=== PATIENT | male | born 1940 | race Caucasian/White ===

== ENCOUNTER → 2017-08-22 | Outpatient (CLI) | payer MEDICARE, OTHER ==
[~2017-08-22] MED LIST: ABAC300; ALBU90OI6 INH; ALLO100 PO; ALLO300 PO; AMLO10 PO; AMOCLA875 PO; ASPI325 PO; ASPI81CH; ATEN50; ATEN50 PO; BECLNI16.8 INH; CLON.2 PO; CLOP75 PO; CRANBERRY250 MG PO; Clotrimazole-Be15 GM; DICL25ER PO; DICL75ER PO; ERGO400; EZET10 PO; FISH1000 PO; FLAX; FLAX SEED PO; FLUO20; FLUO20 PO; FLUTICASONE FUROATE INH; FOLI400 PO; FOLIC ACID 800MCG PO; FURO20; FURO40 PO; GINKGO BILOBA; GINKO PO; GLUCOSAMINE PO; GLYB5; GLYB5 PO; HUMULIN 70100 UNIT/1 SC; HUMULIN R SQ; HYDCHL12.5 PO; Humulin N100 UNIT/1 SC; INSDET100 SQ; INSR10I SC; LANS15EC PO; LISHYD2012 PO; LISI20; LISINOPRIL PO; LORA.5 PO; Lacri-Lube S.O3.5 GM OD; METF500 PO; METFORMIN PO; NIAC500 PO; NIACIN ER750 MG PO; NITR.4SL SL; Norco 5-325 Ta1 EACH PO; OXYACE5T PO; POTA20PAC PO; POTCHL20ER; POTCHL20ER PO; Percocet 5-3251 EACH PO; Prozac40 MG PO; Tylenol325 MG PO; VITAMIN C PO; VITAMIN D PO; Zestril40 MG PO; Zovirax800 MG PO; Zyloprim300 MG PO; [UNRECOGNIZED DRUG - OTHER]; [UNRECOGNIZED DRUG - OTHER] INH
== END | disposition home or self-care (01) ==
LOC: PLD 07:35 → LAB SHORT 07:35 → EDSTATUS 09:00
DX: C44.212 Basal cell carcinoma of skin of right ear and external auricular canal (principal); L57.8 Other skin changes due to chronic exposure to nonionizing radiation
CPT/HCPCS: 88305

== ENCOUNTER → 2017-09-30 | Outpatient (CLI) | payer MEDICARE, OTHER ==
[~2017-09-30] MED LIST changes: +Betamethasone V60 ML; +CLON.1 PO; +FAMO20; +Nitrostat0.4 MG; +Tylophen500 MG
== END | disposition home or self-care (01) ==
LOC: PLD 07:24 → LAB SHORT 07:24
DX: C44.212 Basal cell carcinoma of skin of right ear and external auricular canal (principal)
CPT/HCPCS: 88305

== ENCOUNTER 2018-03-18 06:48 | Day surgery (SDC) | payer MEDICARE, OTHER ==
[~2018-03-18] VITALS: Ht 177.8 cm; Wt 133.4 kg
[~2018-03-18 06:48] MED LIST changes: +ACET500 PO; +BETA.05TO SC; +DOCU100 PO; +FISH OIL 1,0001 EAC1 PO; -FLAX; +FLAX PO; +GINKGO60 MG PO; +HUMULIN 70100 UNIT/2 SC; +HYDR1TAB94 PO; +K-Dur20 MEQ PO; +NIAC250ER PO; +NOVOLIN 70100 UNIT/1 SC; +VITAMIN D22000 UNIT PO; +Vitamin D2000 UNIT PO
[2018-03-18] MEDS ORDERED: Isosorbide Mono30 MG (07:47)
[2018-03-18] MEDS ORDERED: Isosorbide Mono60 MG (07:47)
--- NOTE | 2018-03-18 08:14 | NUR ---
03/18/18 0814 Jackie Moreno PROCEDURE CX BY DR MCDANIEL D/T PT TAKING PLAVIX 03/17/18. PT DISCUSSED RESCHEDULING WITH DR MCDANIEL.
== END 2018-03-18 08:12 | disposition home or self-care (01) ==
LOC: ORSCSDS 06:48
DX: R10.9 Unspecified abdominal pain (principal); Z53.9 Procedure and treatment not carried out, unspecified reason; E11.9 Type 2 diabetes mellitus without complications; Z79.4 Long term (current) use of insulin; I10 Essential (primary) hypertension
CPT/HCPCS: 82947; 93005; 93010; J0330; J1980; J2405; J7120

== ENCOUNTER 2018-04-08 12:35 | Day surgery (SDC) | payer MEDICARE, OTHER ==
[~2018-04-08] VITALS: Ht 175.3 cm; Wt 133.9 kg
[~2018-04-08 12:35] MED LIST changes: +Isosorbide Mono30 MG; +Isosorbide Mono60 MG
== END 2018-04-08 15:45 | disposition home or self-care (01) ==
LOC: ORSCSDS 12:35
DX: R10.9 Unspecified abdominal pain (principal); K22.70 Barrett's esophagus without dysplasia; K44.9 Diaphragmatic hernia without obstruction or gangrene; K31.7 Polyp of stomach and duodenum; K21.9 Gastro-esophageal reflux disease without esophagitis; K31.89 Other diseases of stomach and duodenum; G47.33 Obstructive sleep apnea (adult) (pediatric); I25.10 Atherosclerotic heart disease of native coronary artery without angina pectoris; Z95.1 Presence of aortocoronary bypass graft; E11.9 Type 2 diabetes mellitus without complications; I10 Essential (primary) hypertension; E78.5 Hyperlipidemia, unspecified; Z87.891 Personal history of nicotine dependence; Z79.82 Long term (current) use of aspirin; Z79.4 Long term (current) use of insulin; Z79.899 Other long term (current) drug therapy; Z79.01 Long term (current) use of anticoagulants
CPT/HCPCS: 82947; 88305; 88342; J7120

== ENCOUNTER → 2018-05-06 | Outpatient (CLI) | payer MEDICARE, OTHER | END | disposition home or self-care (01) | LOC: PLD 08:21 → LAB SHORT 08:21 | DX: D48.5 Neoplasm of uncertain behavior of skin (principal) | CPT/HCPCS: 88305 ==

== ENCOUNTER → 2018-05-21 | Outpatient (CLI) | payer MEDICARE, OTHER | END | disposition home or self-care (01) | LOC: LAB SHORT 07:42 → PLD 07:42 | DX: C44.310 Basal cell carcinoma of skin of unspecified parts of face (principal) | CPT/HCPCS: 88305 ==

== ENCOUNTER → 2018-06-23 | Outpatient (CLI) | payer MEDICARE, OTHER ==
[2018-06-24 12:16] LABS: Hematocrit 39.4 % (37.0-53.0); Hemoglobin 12.7 g/dL (13.5-17.5)
[2018-06-24 12:22] LABS: Albumin, Blood 2.9 g/dL (3.4-5.0); Anion Gap 5 mmol/L (6-16); Blood Urea Nitrogen 53 mg/dL (8-24); Bun/Creatinine Ratio 12.7 (12.0-20.0); CO2, Blood 27 mmol/L (21-32); Chloride, Blood 107 mmol/L (98-108); Creatinine, Blood 4.17 mg/dL (0.60-1.20); Glomerular Filtration Rate 15 (60-); Glucose, Blood 125 mg/dL (70-99); Phosphorus, Blood 4.8 mg/dL (2.5-4.9); Potassium, Blood 4.2 mmol/L (3.5-5.5); Sodium, Blood 139 mmol/L (136-145)
== END | disposition home or self-care (01) ==
LOC: LAB SHORT 14:50 → LAB 14:50
PROVIDERS: Internal Medicine
DX: N18.4 Chronic kidney disease, stage 4 (severe) (principal)
CPT/HCPCS: 80069; 85014; 85018

== ENCOUNTER → 2019-01-05 | Outpatient (CLI) | payer MEDICARE, OTHER ==
[2019-01-05 19:13] LABS: Hematocrit 31.2 % (37.0-53.0); Hemoglobin 10.1 g/dL (13.5-17.5)
[2019-01-05 19:45] LABS: Albumin, Blood 2.5 g/dL (3.4-5.0); Anion Gap 8 mmol/L (6-16); Blood Urea Nitrogen 54 mg/dL (8-24); Bun/Creatinine Ratio 11.5 (12.0-20.0); CO2, Blood 19 mmol/L (21-32); Calcium, Blood 8.9 mg/dL (8.5-10.1); Chloride, Blood 111 mmol/L (98-108); Creatinine, Blood 4.69 mg/dL (0.60-1.20); Glomerular Filtration Rate 13 (60-); Glucose, Blood 189 mg/dL (70-99); Phosphorus, Blood 4.5 mg/dL (2.5-4.9); Potassium, Blood 4.9 mmol/L (3.5-5.5); Sodium, Blood 138 mmol/L (136-145)
== END | disposition home or self-care (01) ==
LOC: LAB UCHC 14:12 → LAB SHORT 14:12
PROVIDERS: Internal Medicine
DX: N18.4 Chronic kidney disease, stage 4 (severe) (principal)
CPT/HCPCS: 36415; 80069; 85014; 85018

== ENCOUNTER 2019-01-14 08:57 | Day surgery (SDC) | payer MEDICARE, OTHER ==
[~2019-01-14] VITALS: Ht 175.3 cm; Wt 133.0 kg
[~2019-01-14 08:57] MED LIST changes: +CALC.25 PO; +Isosorbide Mono30 MG PO; -Isosorbide Mono60 MG; +Isosorbide Mono60 MG PO; +Loratadine10 MG PO; +METO50ER PO; +SODBIC650 PO; +TOPROL XL50 MG
--- NOTE | 2019-01-14 12:45 | NUR ---
L NECK PUNCTURE AREA SUTURED BY DR CAMARILLO. -BLEEDING OR OOZING POST SUTURING. STERILE DRSG REAPPLIED.
--- NOTE | 2019-01-14 13:09 | NUR ---
PT VERBALIZED UNDERSTANDING OF WRITTEN AND VERBAL D/C INST. IV REMOVED. PT TAKEN OUT OF THE HRT CENTER VIA W/C.
[2019-03-04] MEDS ORDERED: Aspirin EC81 MG PO (14:58)
[2019-03-04] MEDS ORDERED: NOVOLIN 70100 UNIT/1 SC (15:01)
[2019-03-04] MEDS ORDERED: NITR.4SL SL (15:05)
[2019-03-04] MEDS ORDERED: Betamethasone V15 GM TD (15:07)
[2019-03-04] MEDS ORDERED: ACET500 PO (15:08)
[2019-03-04] MEDS ORDERED: REPATHA SU140 MG/1 M SC (15:12)
== END 2019-01-14 13:15 | disposition home or self-care (01) ==
LOC: MHTC 08:57
DX: I12.0 Hypertensive chronic kidney disease with stage 5 chronic kidney disease or end stage renal disease (principal); E11.22 Type 2 diabetes mellitus with diabetic chronic kidney disease; E66.9 Obesity, unspecified; N18.6 End stage renal disease; E78.5 Hyperlipidemia, unspecified; Z87.891 Personal history of nicotine dependence; Z88.8 Allergy status to other drugs, medicaments and biological substances; Z88.5 Allergy status to narcotic agent; Z79.4 Long term (current) use of insulin; Z79.82 Long term (current) use of aspirin; Z79.899 Other long term (current) drug therapy; Z68.41 Body mass index [BMI] 40.0-44.9, adult
CPT/HCPCS: 36558; 76937; 82947; 99152; C1750; C1769; J1644; J2250; J3010; J7030

== ENCOUNTER 2019-03-05 06:43 | Day surgery (SDC) | payer MEDICARE, OTHER ==
[~2019-03-05] VITALS: Ht 175.3 cm; Wt 136.0 kg
[~2019-03-05 06:43] MED LIST changes: +Aspirin EC81 MG PO; +Betamethasone V15 GM TD; +REPATHA SU140 MG/1 M SC
--- NOTE | 2019-03-05 11:11 | NUR ---
PURSE STRINGS TAKEN OUT X2, CLOTH DOTS PLACED OVER SITES. IV OUT WITH CATHETER INTACT. DISCHARGE GONE OVER WITH PT AND KERA, BOTH VERBALIZE UNDERSTANDING OF INSTRUCTIONS. PT TO PRIVATE VEHICLE PER W/C WITH 1 STAFF.
== END 2019-03-05 11:00 | disposition home or self-care (01) ==
LOC: MHTC 06:43
DX: T82.858A Stenosis of other vascular prosthetic devices, implants and grafts, initial encounter (principal); I12.0 Hypertensive chronic kidney disease with stage 5 chronic kidney disease or end stage renal disease; E11.22 Type 2 diabetes mellitus with diabetic chronic kidney disease; N18.6 End stage renal disease; I25.10 Atherosclerotic heart disease of native coronary artery without angina pectoris; E78.5 Hyperlipidemia, unspecified; M19.90 Unspecified osteoarthritis, unspecified site; E11.69 Type 2 diabetes mellitus with other specified complication; M86.9 Osteomyelitis, unspecified; Z79.4 Long term (current) use of insulin; Z90.49 Acquired absence of other specified parts of digestive tract; Z95.1 Presence of aortocoronary bypass graft; Z95.5 Presence of coronary angioplasty implant and graft; Z99.2 Dependence on renal dialysis; Z79.82 Long term (current) use of aspirin; Z79.02 Long term (current) use of antithrombotics/antiplatelets; Z79.899 Other long term (current) drug therapy; Z88.5 Allergy status to narcotic agent; Z88.8 Allergy status to other drugs, medicaments and biological substances; Z87.891 Personal history of nicotine dependence; Y83.2 Surgical operation with anastomosis, bypass or graft as the cause of abnormal reaction of the patient, or of later complication, without mention of misadventure at the time of the procedure
CPT/HCPCS: 36902; 76937; 82947; 99152; 99153; C1725; C1769; C1887; C1894; J1644; J2250; J3010; J7030; J7042; Q9967

== ENCOUNTER 2019-06-01 11:06 | Inpatient (IN) | payer MEDICARE, OTHER ==
[~2019-06-01] VITALS: Ht 177.8 cm; Wt 121.0 kg
[~2019-06-01 11:06] MED LIST changes: +LEVO750 PO; +NOVOLIN 70100 UNIT/2 SC; +POTCHL10ER PO; +THERA-D2000 UNIT PO
[2019-06-01 11:41] LABS: BASOPHILS ABSOLUTE AUTO 0.02 K/mm3 (0.00-0.23); BASOPHILS PERCENT AUTO 0 % (0-2); EOSINOPHILS ABSOLUTE AUTO 0.01 K/mm3 (0.00-0.68); EOSINOPHILS PERCENT AUTO 0 % (0-6); Hematocrit 42.3 % (37.0-53.0); IMMATURE GRAN ABSOLUTE AUTO 0.09 K/mm3 (0.00-0.10); IMMATURE GRAN PERCENT AUTO 1 % (0-1); LYMPHOCYTES ABSOLUTE AUTO 1.66 K/mm3 (0.84-5.20); LYMPHOCYTES PERCENT AUTO 12 % (21-46); MONOCYTES PERCENT AUTO 10 % (4-13); Mean Corpuscular HGB 33.6 pg (26.0-34.0); Mean Corpuscular HGB Conc 30.7 g/dL (31.5-36.5); Mean Corpuscular Volume 109 fL (80-100); Mean Platelet Volume 11.2 fL (9.1-12.4); NEUTROPHILS ABSOLUTE AUTO 10.36 K/mm3 (1.96-9.15); NEUTROPHILS PERCENT AUTO 77 % (41-73); NRBC ABSOLUTE 0.05 K/mm3 (0.00-0.02); NRBC Auto 0.4 /100 WBC (0.0-0.2); Platelet Count 169 K/mm3 (150-400); RDW Coefficient Variation 18.9 % (11.7-14.2); RDW Standard Deviation 72.5 fL (35.1-46.3); Red Blood Cell Count 3.87 M/mm3 (4.30-5.90); White Blood Cell Count 13.54 K/mm3 (4.00-11.30)
[2019-06-01 11:53] LABS: Albumin, Blood 3.2 g/dL (3.4-5.0); Albumin/Globulin Ratio 0.8 (0.8-1.8); Bilirubin, Total 3.3 mg/dL (0.1-1.0); Bun/Creatinine Ratio 10.3 (12.0-20.0); Calcium, Blood 10.1 mg/dL (8.5-10.1); Creatinine, Blood 4.08 mg/dL (0.60-1.20); Potassium, Blood 4.1 mmol/L (3.5-5.5); Total Protein, Blood 7.2 g/dL (6.4-8.2)
[2019-06-01 12:42] LABS: CPK Creatine Kinase 50 U/L (39-308); Ethanol (Alcohol), Blood, Med <3 mg/dL
[2019-06-01] MEDS ORDERED: NOVOLIN 70100 UNIT/1 SC (14:01)
[2019-06-01] MEDS ORDERED: Isosorbide Mono60 MG PO (14:02)
[2019-06-01] MEDS ORDERED: METO100ER PO (14:02)
[2019-06-01] MEDS ORDERED: SEVEC800 PO (14:03)
[2019-06-01] MEDS ORDERED: ALLOPURINOL100 M1 PO (14:03)
[2019-06-01 14:14] LABS: Base Excess Venous 5.8 mmol/L; Bicarbonate Venous 28.7 mmol/L (24.0-30.0); PCO2 Venous 44.4 mmHg (38-42); PO2 Venous 59.6 mmHg (38-42); pH Blood Venous 7.44 (7.34-7.37)
--- NOTE | 2019-06-01 19:36 | NUR ---
SUMMARY PT CONTINUES TO BE CONFUSED/LETHARGIC. HE RESPONDS TO VERBAL STIMULI & ATTEMPTS TO COMMUNICATE BUT SPEECH IS MOSTLY GARBLED & NONSENSICLE. IV ABX INFUSED PER EMAR, NS TKO @ 25 ML/HR. PT IS ON 2 L VIA NC, CONT BIOX PLACED. BED ALARM ON FOR SAFETY. CALL LIGHT IN REACH. REPORT GIVEN TO EFREN CANTOR.
--- NOTE | 2019-06-01 22:24 | NUR ---
Assumed Care Pt lethargic, arrousable with voice, unable to answer orientation questions. Pt is alert throughout care, not speaking or answering verbally to staff. Pt able to follow commands such as lifting arms or turning from side to side. Pt demostrating weak strength throughout. BP showing HTN upon initial assessment, pt too lethargic to safely swallow. Provider called and orders recieved for IV medication. BP post administration improved. All other VSS. pt is rule out covid-19, 96% on 2L NC. Pt with 2-3+ pitting edema to LLE up to L buttocks. non weeping. Pts called this RN for update. update provided. Pt's states "he hasn't eated for 3 days, he falls a lot at home". Will continue to [facility].
--- NOTE | 2019-06-02 02:32 | NUR ---
: SHERLEY LOCKHART WOULD LIKE TO BE UPDATED NEEDED: [phone]
[2019-06-02 04:08] LABS: BASOPHILS ABSOLUTE AUTO 0.03 K/mm3 (0.00-0.23); BASOPHILS PERCENT AUTO 0 % (0-2); EOSINOPHILS ABSOLUTE AUTO 0.13 K/mm3 (0.00-0.68); EOSINOPHILS PERCENT AUTO 1 % (0-6); Hemoglobin 11.3 g/dL (13.5-17.5); IMMATURE GRAN ABSOLUTE AUTO 0.03 K/mm3 (0.00-0.10); IMMATURE GRAN PERCENT AUTO 0 % (0-1); LYMPHOCYTES ABSOLUTE AUTO 0.94 K/mm3 (0.84-5.20); LYMPHOCYTES PERCENT AUTO 10 % (21-46); MONOCYTES ABSOLUTE AUTO 1.03 K/mm3 (0.16-1.47); MONOCYTES PERCENT AUTO 11 % (4-13); Mean Corpuscular HGB Conc 31.4 g/dL (31.5-36.5); Mean Corpuscular Volume 108 fL (80-100); Mean Platelet Volume 10.6 fL (9.1-12.4); NEUTROPHILS PERCENT AUTO 77 % (41-73); NRBC ABSOLUTE 0.02 K/mm3 (0.00-0.02); NRBC Auto 0.2 /100 WBC (0.0-0.2); Platelet Count 101 K/mm3 (150-400); RDW Coefficient Variation 18.2 % (11.7-14.2); RDW Standard Deviation 71.5 fL (35.1-46.3); Red Blood Cell Count 3.32 M/mm3 (4.30-5.90); White Blood Cell Count 9.16 K/mm3 (4.00-11.30)
[2019-06-02 04:25] LABS: Bun/Creatinine Ratio 11.9 (12.0-20.0); Calcium, Blood 9.5 mg/dL (8.5-10.1); Creatinine, Blood 4.45 mg/dL (0.60-1.20); Potassium, Blood 3.5 mmol/L (3.5-5.5)
--- NOTE | 2019-06-02 05:47 | NUR ---
Shift Summary pt with no acute changes this shift, pt remains lethargic, arrousable to verbal stim, garbled speech with grunting and moaning, following commands, appears comfortable. Repositioned q2, compliant with turns. Oral care provided q4 and PRN. At times, pt able to express needs clearly stating "My mouth is dry" then does not communicate more than that. Pt is NPO. Too lethargic to give PO medications safely this shift, Protonix IV per MD orders. See shift assessment for detailed systems assessment. Pt is droplet isolation for R/O COVID-19. Care bundled accordingly, breathing even and unlabored on 2L NC, oxygen saturation 95% or above, no changes to lung matute upon auscultation this shift. Will continue to monitor and update with changes as needed until day RN assumes care.
[2019-06-02 10:26] LABS: Albumin, Blood 2.7 g/dL (3.4-5.0); Albumin/Globulin Ratio 0.8 (0.8-1.8); Bilirubin, Direct 1.2 mg/dL (0.0-0.3); Bilirubin, Indirect 0.5 mg/dL (0.1-0.7); Bilirubin, Total 1.7 mg/dL (0.1-1.0); Globulin, Blood 3.4 g/dL (2.2-4.0); Total Protein, Blood 6.1 g/dL (6.4-8.2)
--- NOTE | 2019-06-02 17:35 | NUR ---
PCU DAYSHIFT SUMMARY PATIENT CONFUSED AND LETHARGIC T/O SHIFT. Q2 TURNS AND INCONTINENT OF URINE AND STOOL. RESP E/U AT REST ON 2 LPM NC. PATIENT NSR IN THE 70'S. PATIENT BLOOD SUGARS LOW T/O SHIFT - NOTIFIED MD MILLER X3 - NEW ORDERS GIVEN SEE ORDERS AND EMAR. PATIENT STATES HE FEELS POORLY. PATIENT JAUNDICE. DIALYSIS PATIENT WITH L CHEST PERMA CATH AND RIGHT FOREARM FISTUALA - DIALYSIS TODAY WITH 2.5 L REMOVED. CALL LIGHT W/I REACH. BED ALARM ON. PATIENT KEPT NPO DUE TO ASPITATION RISK. WILL CONTINUE TO MONITOR AND GIVE REPORT TO NOC SHIFT RN.
--- NOTE | 2019-06-02 22:39 | NUR ---
ASSUMED CARE/TRANSFER TO ICU 9 Pt alert and oriented to person, place, date, and following directions. VSS. Q1 hour blood sugar checks per orders. Orders at time of this RN arrival implemented, blood sugar improved to >100. Pt is rule out COVID-19; CPAP at bedside set up by RT; pt will be in airborne precautions once CPAP is utilized. Pt with only one access site - PIV to LAC, patent and flushing, infusing at this time. Pt denies pain. No redness or swelling noted. See shift assessment for detailed systems assessment. NSR on tele, no events. Fistula to RFA; no blood pressure or lab draws on R arm, sign in place on door. Due to acuity of care, provider called and orders obtained for ICU status. Per provider, PICC line to be placed, straigh cath to be placed for UA. Provider made aware that no composite boat builder who can place PICC line at this time - Nurse Notify placed per provider order to call back if PIV is lost at anytime this shift. Report given to POLITICAL GEOGRAPHER who assumes care. Pt transfered to ICU with all pt belongings with him, this RN and two PHOTOGRAPHY MANAGER at bedside during transfer; mask placed on pt during transfer.
--- NOTE | 2019-06-02 22:55 | NUR ---
Pt's , Maryellen, called and updated on pt and on the transfer to ICU.
--- NOTE | 2019-06-03 00:18 | NUR ---
ASSUMED PT CARE FROM DEVAUGHN BRO AT 2200 PT ARRIVED ON UNIT WITH MASK IN PLACE D/T COVID RULE OUT. PT IS ON 2L VIA NC WITH BIOX MID 90'S. PT IS ALERT AND ORIENTED AND ABLE TO MAKE NEEDS KNOWN; HOWEVER, NOTED TO HAVE A SLURRED SPEECH. ASKED PT IF THIS IS BASELINE FOR HIM IN WHICH HE STATED, "NO" THAT IS MOUTH WAS JUST DRY. MOUTH SWABS GIVEN WITH MOISTURIZER AND SPEECH CLEARED UP. LUNG SOUNDS ARE CLEAR/DIM T/O ALL LOBES. BLOOD SUGAR 116; DEXTROSE 10% INFUSING VIA 20G TO LEFT AC AT 75MLS/HR. NSR NOTED WITH HR 60'S; BP'S STABLE, SEE FLOWSHEET. MEDIPORT NOTED TO LEFT UPPER CHEST; BOTH LUMENS ARE WRAPPED WITH COBAN AND SECURE. PT NOTED TO HAVE DEEP PITTING EDEMA TO ABDOMEN, LOWER BACK, AND BILATERAL UPPER THIGHS. BLE'S ARE DARK AND DISCOLORED; NO OPEN AREAS NOTED. PT HAS AN ATTENDS IN PLACE; ORDERS TO STRAIGHT CATH; HOWEVER, PT VOIDED PRIOR TO TRANSFERRING TO UNIT. WILL BLADDER SCAN LATER AND STRAIGHT CATH TO OBTAIN UA. CALL LIGHT WITHIN REACH. PT ABLE TO MAKE NEEDS KNOWN.
--- NOTE | 2019-06-03 02:27 | NUR ---
UPDATE WENT IN TO RECHECK BLOOD SUGAR PER ORDERS. PT VERY UPSET AND QUESTIONING WHY WE ARE CHECKING SO FREQUENTLY (EVERY HOUR). ADVISED PT HE IS IN THE ICU D/T UNSTABLE BLOOD SUGARS, HE IS ON FLUIDS CONTINUOUSLY TO KEEP HIS BLOOD SUGAR STABLE. PT STILL UPSET. ALSO UPSET ABOUT BLOOD PRESSURE BEING TAKEN SO FREQUENTLY; Q15 MINUTES. ADVISED I COULD BACK OFF THE PRESSURES SINCE THEY HAVE BEEN STABLE TO EVERY HOUR. PT DEMANDED THAT THEY BE TAKEN EVERY TWO HOURS. HAD DISCUSSION WITH PT THAT HE SEEMS VERY RELUCTANT TO CARES AND THAT WE ARE JUST DOING OUR JOBS TO KEEP HIM SAFE AND ALIVE PER HIS FULL CODE WISHES. PT DENIES WANTING TO BE A FULL CODE. STATED HE DOES NOT WANT TO BE RESUSCITATED AND WOULD LIKE TO GO HOME. INFORMED PT THAT IS HIS RIGHT AND IF THAT IS WHAT HE WANTS THEN WE CAN HAVE A PHYSICIAN SPEAK WITH HIM IN THE MORNING REGARDING THE RISK AND BENEFIT OF GOING HOME. HE STATED, "THE DOCTORS DON'T CARE, THEY JUST PUSH PAPERWORK." REITERATED TO PT THAT WE WANT TO DO WHATEVER HIS WISHES ARE AND IF THAT IS GOING HOME ON COMFORT CARE THEN THAT IS WHAT WE WILL ADVOCATE FOR. ATTEMPTED REDIRECTION WITH OFFERING ASSISTANCE WITH REPOSITIONING; PT REFUSED AND STATED HE COULD REPOSITION HIMSELF. PT HAS REMAINED IN THE SUPING POSITION SINCE ADMIT TO UNIT AROUND 2200. WILL CONTINUE TO ENCOURAGE REPOSITIONING.
--- NOTE | 2019-06-03 04:18 | NUR ---
REFUSAL OF CARE PT REFUSING ALL CARE. REFUSED LABS, REFUSED STRAIGHT CATH FOR UA. REMOVED OXYGEN; BIOX 94% ON RA. WANTS TO TALK TO DOC ABOUT GOING HOME NOW. INFORMED PT I WOULD CONTACT THE DOCTOR ABOUT DISCUSSING GOING HOME ON COMFORT MEASURES IF THAT IS WHAT HE WISHES. PT THEN STATED HE WASN'T GOING TO MAKE ANY DECISIONS WITHOUT CONSULTING HIS FIRST. ATTEMPTED TO CALL ; NO ANSWER. LEFT MESSAGE AND RETURN NUMBER. PT NOTIFIED. DEXTROSE 10% REMAINS INFUSING AT 75MLS/HR; HOWEVER, PT REFUSES TO ALLOW ME TO CHECK HIS BLOOD SUGAR.
--- NOTE | 2019-06-03 05:59 | NUR ---
END OF SHIFT SUMMARY STILL WAITING ON RETURN CALL FROM REGARDING CHANGING PT'S STATUS. PT CONTINUES TO REFUSE CARE; SEE EARLIER NOTES. D10 INFUSING AT 75ML/HR; LAST BLOOD SUGAR CHECKED AT 0600 WAS 120'S. WILL CONTINUE TO MONITOR UNTIL REPORT IS HANDED OFF TO ONCOMING RN.
--- NOTE | 2019-06-03 07:41 | NUR ---
Received report from Dustin CANTOR. Went in to see patient and introduced self and asked patient what his plans were for today. I explained that labs needed to be drawn for dialysis to prepare and he stated "NO". I asked if could do blood sugars as he is on fluids that increase his blood sugars as when he arrived he was very low and again he stated "NO". I informed him that he would most likely get sicker and have a possibilty of dying and he stated That would be fine. he asked if i contacted and told him Dustin CANTOR from nights left messages at house and no return call. He stated what about my 4 other contact and i took their names and he did not know numbers. Son Aditi, Kiko daughter, paz grandson, and maxime. Number on face sheet for son was disconnected. Looked up numers for other family numbers and all phones had message centers that were full and I left messages on both wifes numbers again. I informed this to the patient and he stated " I do not want any thing done" I will continue to try to contact family. He is on RA and sats 99%, HR 68, 147/77. He has 20ga IV in LAC/FA infusing d10 at 75ml/hr. Called Dr. Alfonso and informed her of patients decisions. I also called Alec from Dialysis and advised him patient refusing. While writing this note called back and is talking with him on phone.
[2019-06-03 09:02] LABS: BASOPHILS ABSOLUTE AUTO 0.03 K/mm3 (0.00-0.23); BASOPHILS PERCENT AUTO 0 % (0-2); Bun/Creatinine Ratio 10.3 (12.0-20.0); Calcium, Blood 9.1 mg/dL (8.5-10.1); Creatinine, Blood 3.68 mg/dL (0.60-1.20); EOSINOPHILS ABSOLUTE AUTO 0.37 K/mm3 (0.00-0.68); EOSINOPHILS PERCENT AUTO 5 % (0-6); Hematocrit 35.7 % (37.0-53.0); Hemoglobin 11.5 g/dL (13.5-17.5); IMMATURE GRAN ABSOLUTE AUTO 0.05 K/mm3 (0.00-0.10); IMMATURE GRAN PERCENT AUTO 1 % (0-1); LYMPHOCYTES ABSOLUTE AUTO 0.87 K/mm3 (0.84-5.20); LYMPHOCYTES PERCENT AUTO 11 % (21-46); MONOCYTES ABSOLUTE AUTO 0.82 K/mm3 (0.16-1.47); MONOCYTES PERCENT AUTO 11 % (4-13); Mean Corpuscular HGB 34.8 pg (26.0-34.0); Mean Corpuscular HGB Conc 32.2 g/dL (31.5-36.5); Mean Corpuscular Volume 108 fL (80-100); Mean Platelet Volume 10.9 fL (9.1-12.4); NEUTROPHILS ABSOLUTE AUTO 5.56 K/mm3 (1.96-9.15); NEUTROPHILS PERCENT AUTO 72 % (41-73); Platelet Count 108 K/mm3 (150-400); Potassium, Blood 3.6 mmol/L (3.5-5.5); RDW Coefficient Variation 17.8 % (11.7-14.2); RDW Standard Deviation 69.6 fL (35.1-46.3)
--- NOTE | 2019-06-03 10:23 | NUR ---
Patient allowed us to do a CBG around 09 and was 166. Aids gave bath and had him placed up in recliner and given broth per his request. I asked several times if he want his am meds and refused several times. He is currently Med no tele and r/o covid. removed bandaid from LFA and cleaned skin tear from bathroom at home and reapplied dressing t site.
--- NOTE | 2019-06-03 11:57 | NUR ---
Sat with patient and talked about life and buisness and he decided to take his am meds. He transfered from chair to bed with SBA and was bale to adjust himself. It sound like he will be willing to have dialysis tomorrow. he talks like he is very frustrated about his independence and feels that he has lost alot of skill with his current illness. Dr Simpson by to see patient.
--- NOTE | 2019-06-03 15:41 | NUR ---
Patient has been resting since medicated, repositioned patient several times. Dialysis started about 20 minutes ago and patient has been slightly hypotensive. Patient has been more cooperative with his care.
--- NOTE | 2019-06-03 18:22 | NUR ---
Dialysis done and patient resting. They were able to pull 1800ml off patient. VSS and See EMR. He remains on RA and sats upper 90%'s. D10 continues to run at 50ml/hr since 1400. He has tolerated liquids and PO meds. Patient denies any current needs. he has pushpa more cooperative with care and states just wants to get a good night sleep.
--- NOTE | 2019-06-03 20:00 | NUR ---
ASSUMED CARE OF PT AT 1915. REPORT RECEIVED AT BEDSIDE. PT PRESENTS IN NO APPARENT DISTRESS. DENIES COMPLAINTS. CONTINUES ON D10W AT 50 ML/HOUR. BLOOD GLUCOSE LEVELS MAINTAINING WNL. WILL REVIEW CHART AND PLAN OF CARE FOR THIS PT.
--- NOTE | 2019-06-04 | NUR ---
PT CONTINUES WITH BLOOD GLUCOSE Q 4 HOUR CHECKS. VALUES REMAIN WNL. D10W CONTINUES AT 50 ML/HOUR. PT DENIES COMPLAINTS. AFEBRILE. WILL CONTINUE TO MONITOR.
[2019-06-04 00:10] LABS: HBSAG SCREEN Negative (Negative); HEP A AB, IGM Negative (Negative); HEP B CORE AB, IGM Negative (Negative); HEP C VIRUS AB <0.1 (0.0-0.9)
[2019-06-04 03:59] LABS: BASOPHILS ABSOLUTE AUTO 0.03 K/mm3 (0.00-0.23); BASOPHILS PERCENT AUTO 0 % (0-2); EOSINOPHILS ABSOLUTE AUTO 0.45 K/mm3 (0.00-0.68); EOSINOPHILS PERCENT AUTO 7 % (0-6); Hematocrit 36.4 % (37.0-53.0); Hemoglobin 11.6 g/dL (13.5-17.5); IMMATURE GRAN ABSOLUTE AUTO 0.05 K/mm3 (0.00-0.10); IMMATURE GRAN PERCENT AUTO 1 % (0-1); LYMPHOCYTES ABSOLUTE AUTO 0.87 K/mm3 (0.84-5.20); LYMPHOCYTES PERCENT AUTO 13 % (21-46); MONOCYTES ABSOLUTE AUTO 0.96 K/mm3 (0.16-1.47); MONOCYTES PERCENT AUTO 14 % (4-13); Mean Corpuscular HGB 34.6 pg (26.0-34.0); Mean Corpuscular HGB Conc 31.9 g/dL (31.5-36.5); Mean Corpuscular Volume 109 fL (80-100); Mean Platelet Volume 10.7 fL (9.1-12.4); NEUTROPHILS ABSOLUTE AUTO 4.61 K/mm3 (1.96-9.15); NEUTROPHILS PERCENT AUTO 66 % (41-73); Platelet Count 98 K/mm3 (150-400); RDW Coefficient Variation 17.6 % (11.7-14.2); Red Blood Cell Count 3.35 M/mm3 (4.30-5.90); White Blood Cell Count 6.97 K/mm3 (4.00-11.30)
[2019-06-04 04:18] LABS: Bun/Creatinine Ratio 8.6 (12.0-20.0); Calcium, Blood 8.6 mg/dL (8.5-10.1); Creatinine, Blood 3.15 mg/dL (0.60-1.20); Magnesium, Blood 1.9 mg/dL (1.6-2.4); Potassium, Blood 3.5 mmol/L (3.5-5.5)
--- NOTE | 2019-06-04 06:30 | NUR ---
PT HAS BEEN ABLE TO REST SOME THIS NIGHT. HAS DENIED COMPLAINTS. NO DYSPNEA. HAS BEEN INCONTINENT TO LARGE VOID. PT ABLE TO ASSIST IN TURNS AND BED CHANGE. WILL CONTINUE TO MONITOR PT, AND WILL REPORT OFF TO ONCOMING RN.
--- NOTE | 2019-06-04 08:00 | NUR ---
ASSUMED CARE RECEIVED REPORT FROM DEVAUGHN SANCHES. PT IS LYING IN BED ALERT AND ORIENTED TO SELF, SITUATION, SURROUNDINGS AND DATE. HE IS ON 2L NC. SCD'S ARE ON BILATERAL CALVES. FISTULA IN RIGHT FOREARM - PALPABLE THRILL AND BRUIT WAS AUSCULTATED. BED LOW AND LOCKED. CALL LIGHT WITHIN REACH.
[2019-06-04] MEDS ORDERED: LEVFLO500 PO (13:27)
--- NOTE | 2019-06-04 13:30 | NUR ---
Called to meet with patient by chaplian. Patient expressing great stress at having to do dialysis and his fatigue. Review of pt symptoms he states the only day he does not feel sick is saturday when he has had two days off from dialysis. He sstates last treatment at clinic was frightening due to the illness he felt during the treatent. He is interested in peritoneal dialysis but has not seen the home nurse to have his memebrane evaluated for UF potential. Pt has very sore mouth and it is worsening . Review of oral care and strategies for dry sore mouth. pt to discharge home.
--- NOTE | 2019-06-04 18:41 | NUR ---
Initial spiritual care note: Mr. Nino spoke at length about how dialysis has become a hardship for him. He states it is a 60 mile round trip, "and then the day is wasted because I feel so lousy." He is hopeful to be able to have dialysis at home. If he cannot, he is unsure he wants to continue dialysis at all. He is used to a rather active life-style. This gave his life purpose. He was very open with me and appeared to benefit from being heard and affirmed. He is non-restoration. He is being discharged home this afternoon. I asked palliative care RN to confirm his wishes.
== END 2019-06-04 14:18 | disposition home or self-care (01) | DRG 871 ==
LOC: ER 11:06 → PCU 13:39 → ICUW 06-02 21:39
PROVIDERS: Emergency Medicine; Internal Medicine; ADMIT Internal Medicine
PROC: 8E0ZXY6 Isolation (ICD-10-PCS; principal; 2019-06-01)
DX: A41.9 Sepsis, unspecified organism (principal); J18.9 Pneumonia, unspecified organism; N18.6 End stage renal disease; Z68.43 Body mass index [BMI] 50.0-59.9, adult; I12.0 Hypertensive chronic kidney disease with stage 5 chronic kidney disease or end stage renal disease; G93.40 Encephalopathy, unspecified; Z95.1 Presence of aortocoronary bypass graft; R65.20 Severe sepsis without septic shock; Z79.82 Long term (current) use of aspirin; Z79.4 Long term (current) use of insulin; Z99.2 Dependence on renal dialysis; E66.9 Obesity, unspecified; I25.10 Atherosclerotic heart disease of native coronary artery without angina pectoris; E78.5 Hyperlipidemia, unspecified; E11.649 Type 2 diabetes mellitus with hypoglycemia without coma; Z91.81 History of falling
CPT/HCPCS: 36415; 51798; 70450; 71045; 71250; 74150; 76705; 80048; 80053; 80074; 80076; 82140; 82550; 82803; 82947; 83605; 83735; 83880; 84145; 84443; 85025; 86317; 87040; 93005; 93010; 94660; 99285-25; A9270; A9270-GY; C9113; G0480; J0696; J1815; J1956; J3370; J7040; J7799; U0002

== ENCOUNTER → 2019-06-09 | Outpatient (CLI) | payer MEDICARE, OTHER ==
[~2019-06-09] MED LIST changes: +ALLOPURINOL100 M1 PO; +LEVFLO500 PO; +METO100ER PO; +SEVEC800 PO
[2019-06-09 16:17] LABS: Hematocrit 35.6 % (37.0-53.0); Hemoglobin 11.2 g/dL (13.5-17.5)
== END | disposition home or self-care (01) ==
LOC: LAB SHORT 16:09 → LAB 16:09
PROVIDERS: Internal Medicine
DX: D64.9 Anemia, unspecified (principal)
CPT/HCPCS: 85014; 85018

== ENCOUNTER → 2019-06-11 | Outpatient (CLI) | payer MEDICARE, OTHER ==
[2019-06-11 17:07] LABS: Blood, Urine 1+ (Neg); Glucose Qualitative, Urine Neg (Neg); Ketones, Urine Neg (Neg); Leukocyte Esterase, Urine 1+ (Neg); Nitrite, Urine Neg (Neg); Protein, Urine 4+ (Neg); Specific Gravity, Urine 1.015 (1.003-1.022); Urobilinogen, Urine 1+ (Normal)
[2019-06-11 17:20] LABS: Bilirubin, Urine 1+ (Neg)
[2019-06-11 17:21] LABS: Appearance, Urine Clear (Clear); Color, Urine Yellow (P-Yellow)
[2019-06-11 17:22] LABS: Bacteria Mod /hpf; Red Blood Cells, Urine 0-2 /hpf (0-2); Squamous Epithelial Cells Rare /hpf (Few)
[2019-06-11 17:23] LABS: Yeast/Fungi Urine Many /hpf
== END | disposition home or self-care (01) ==
LOC: LAB 16:02 → LAB SHORT 16:02
PROVIDERS: Internal Medicine
DX: R31.9 Hematuria, unspecified (principal)
CPT/HCPCS: 81001; 87086

== ENCOUNTER 2019-06-18 12:39 | Inpatient (IN) | payer MEDICARE, OTHER ==
[~2019-06-18] VITALS: Ht 177.8 cm; Wt 119.5 kg
[~2019-06-18 12:39] MED LIST changes: -THERA-D2000 UNIT PO
[2019-06-18 13:30] LABS: BASOPHILS ABSOLUTE AUTO 0.05 K/mm3 (0.00-0.23); BASOPHILS PERCENT AUTO 1 % (0-2); EOSINOPHILS PERCENT AUTO 2 % (0-6); Hematocrit 40.1 % (37.0-53.0); Hemoglobin 12.6 g/dL (13.5-17.5); IMMATURE GRAN ABSOLUTE AUTO 0.04 K/mm3 (0.00-0.10); IMMATURE GRAN PERCENT AUTO 0 % (0-1); LYMPHOCYTES ABSOLUTE AUTO 1.32 K/mm3 (0.84-5.20); LYMPHOCYTES PERCENT AUTO 15 % (21-46); MONOCYTES ABSOLUTE AUTO 1.17 K/mm3 (0.16-1.47); MONOCYTES PERCENT AUTO 13 % (4-13); Mean Corpuscular HGB 33.9 pg (26.0-34.0); Mean Corpuscular HGB Conc 31.4 g/dL (31.5-36.5); Mean Platelet Volume 10.4 fL (9.1-12.4); NEUTROPHILS ABSOLUTE AUTO 6.14 K/mm3 (1.96-9.15); NEUTROPHILS PERCENT AUTO 69 % (41-73); Platelet Count 91 K/mm3 (150-400); RDW Coefficient Variation 17.5 % (11.7-14.2); RDW Standard Deviation 65.8 fL (35.1-46.3); Red Blood Cell Count 3.72 M/mm3 (4.30-5.90); White Blood Cell Count 8.92 K/mm3 (4.00-11.30)
[2019-06-18 13:44] LABS: Mean Corpuscular Volume 108 fL (80-100)
[2019-06-18 13:49] LABS: Albumin/Globulin Ratio 0.8 (0.8-1.8); Bilirubin, Total 2.1 mg/dL (0.1-1.0); Bun/Creatinine Ratio 9.2 (12.0-20.0); Calcium, Blood 10.3 mg/dL (8.5-10.1); Creatinine, Blood 4.35 mg/dL (0.60-1.20); Globulin, Blood 3.9 g/dL (2.2-4.0); Potassium, Blood 3.5 mmol/L (3.5-5.5); Total Protein, Blood 6.9 g/dL (6.4-8.2)
--- NOTE | 2019-06-18 18:24 | NUR ---
BROUGHT TO PCU FROM ED VIA STRETCHER. APPEARS SLEEPY ON ARRIVAL. ANSWERS QUESTIONS WITH SLOW RESPONSE AFTER MULTIPLE PROMPTS. 4L 02 VIA NC. IV TO RIGHT SHOULDER. MEPLIX PLACED ON COCCYX FOR REDDENED AREA. LARGE HEMATOMA NOTED ABOVE COCCYX EXTENDING ACROSS RIGHT UPPER BUTTOX. PHOTOS TAKEN FOR CHART. VSS, WILL CONTINUE TO MONITOR UNTIL SHIFT CHANGE. IV NS STARTED AT 100ML/HR PER ORDERS.
[2019-06-18 22:56] LABS: Source, Urine Voided
[2019-06-18 22:59] LABS: Appearance, Urine Clear (Clear); Bilirubin, Urine 1+ (Neg); Blood, Urine 3+ (Neg); Color, Urine Amber (P-Yellow); Glucose Qualitative, Urine Neg (Neg); Ketones, Urine 1+ (Neg); Leukocyte Esterase, Urine 1+ (Neg); Nitrite, Urine Neg (Neg); Protein, Urine 4+ (Neg); Urobilinogen, Urine 1+ (Normal)
[2019-06-18 23:05] LABS: Bacteria Mod /hpf; Granular Casts 0-2 /lpf (0); Red Blood Cells, Urine 0-2 /hpf (0-2); Squamous Epithelial Cells Few /hpf (Few)
[2019-06-18 23:10] LABS: U Amphetamine Screen Not Detected; U Barbituate Screen Not Detected; U Benzodiazapine Screen Not Detected; U Buprenorphine Screen Not Detected; U Cannabinoids Screen Not Detected; U Cocaine Screen Not Detected; U Methadone Screen Not Detected; U Methamphetamine Screen Not Detected; U Opiates Screen Not Detected; U Oxycodone Screen Not Detected; U Phencyclidine Screen Not Detected; U Propoxyphene Screen Not Detected
[2019-06-19 04:18] LABS: BASOPHILS ABSOLUTE AUTO 0.03 K/mm3 (0.00-0.23); BASOPHILS PERCENT AUTO 0 % (0-2); EOSINOPHILS ABSOLUTE AUTO 0.18 K/mm3 (0.00-0.68); EOSINOPHILS PERCENT AUTO 3 % (0-6); Hematocrit 38.2 % (37.0-53.0); Hemoglobin 12.2 g/dL (13.5-17.5); IMMATURE GRAN ABSOLUTE AUTO 0.03 K/mm3 (0.00-0.10); IMMATURE GRAN PERCENT AUTO 0 % (0-1); LYMPHOCYTES ABSOLUTE AUTO 1.13 K/mm3 (0.84-5.20); LYMPHOCYTES PERCENT AUTO 16 % (21-46); MONOCYTES ABSOLUTE AUTO 0.75 K/mm3 (0.16-1.47); MONOCYTES PERCENT AUTO 11 % (4-13); Mean Corpuscular HGB 34.7 pg (26.0-34.0); Mean Corpuscular HGB Conc 31.9 g/dL (31.5-36.5); Mean Corpuscular Volume 109 fL (80-100); Mean Platelet Volume 10.3 fL (9.1-12.4); NEUTROPHILS ABSOLUTE AUTO 4.93 K/mm3 (1.96-9.15); NEUTROPHILS PERCENT AUTO 70 % (41-73); Platelet Count 81 K/mm3 (150-400); RDW Coefficient Variation 17.6 % (11.7-14.2); RDW Standard Deviation 67.7 fL (35.1-46.3); Red Blood Cell Count 3.52 M/mm3 (4.30-5.90); White Blood Cell Count 7.05 K/mm3 (4.00-11.30)
[2019-06-19 04:30] LABS: International Normalized Ratio 1.16; Prothrombin Time Results 12.3 Sec (9.7-11.5)
[2019-06-19 04:40] LABS: Albumin, Blood 2.8 g/dL (3.4-5.0); Albumin/Globulin Ratio 0.7 (0.8-1.8); Bun/Creatinine Ratio 9.6 (12.0-20.0); Calcium, Blood 9.9 mg/dL (8.5-10.1); Creatinine, Blood 4.38 mg/dL (0.60-1.20); Globulin, Blood 3.8 g/dL (2.2-4.0); Magnesium, Blood 1.9 mg/dL (1.6-2.4); Potassium, Blood 3.6 mmol/L (3.5-5.5); Total Protein, Blood 6.6 g/dL (6.4-8.2); Troponin I 0.015 ng/mL (0.000-0.040)
--- NOTE | 2019-06-19 05:39 | NUR ---
SHIFT SUMMARY PATIENT VERY DROWSY AT THE BEGINNING OF THE SHIFT. PATIENT WOULD WAKE UP EASILY TO VERBAL STIMULI AND TOUCH BUT WOULD THEN QUICKLY FALL ASLEEP AGAIN. PATIENT MUMBLED WORDS. PATIENT THEN APPEARED TO SLEEP WELL THROUGHOUT THE REST OF THE NIGHT. THIS MORNING PATIENT MUCH MORE ALERT AND IS ASKING, "WHAT HAPPENED." PATIENT ORIENTEDED ACCORDINGLY. PATIENT THEN STATED, "MY BRAIN FEELS LESS FOGGY." PATIENT ABLE TO STAY AWAKE TO CARRY ON A CONVERSATION APPROPRIATLY THIS AM. PATIENT APPEARS TO BE ALERT AND ORIENTED AT THIS TIME. PATIENT TURNED FREQUENTLY THROUGHOUT THE NIGHT. WILL CONTINUE TO MONITOR PATIENT AND REPORT TO ONCOMING RN.
--- NOTE | 2019-06-19 07:16 | NUR ---
ASSUMED CARE AT 0700. RESTING IN BED SUPINE. A/A/OX4 AT THIS TIME. UPDATED ON PLAN OF CARE FOR THE DAY, PT AGREES WITH DIAYLSIS PLAN. REPORTS DOESN'T REMEMBER COMING TO HOSPITAL LAST NIGHT BUT FEELS PRETTY GOOD THIS MORNING. WILL CONTINUE TO MONITOR.
--- NOTE | 2019-06-19 09:00 | NUR ---
TAKEN TO DIALYSIS.
--- NOTE | 2019-06-19 12:22 | NUR ---
The pt returned to the room from Dialysis. Consuelo crime lab technician told us that the pt had been seen by Dr. Simpson while he was being dialyzed. The pt continues to be NPO; we are waiting for the attending physician, Dr. Rojas, to round on the pt.
--- NOTE | 2019-06-19 18:18 | NUR ---
SHIFT SUMMARY; A/A/OX3 TODAY DURING SHIFT WITH SMALL PERIODS OF INTERMITANT CONFUSION. HAD DIALYSIS TODAY. POWER GLIDE PLACED TO LEFT BICEP DURING SHIFT. AMBULATED IN ROOM WITH WALKER AND 2 PERSON ASSIST. MULTIPLE BRUSIES BILTERALLY TO ARMS, PT STATES HAS BEEN FALLING AT HOME. LARGE BRUISE TO RIGHT FLANK AREA UNCHANGED FROM YESTERDAYS SHIFT. VSS, EATING WITHOUT DIFFICULTY. WILL CONTINUE TO MONITOR UNTIL SHIFT CHANGE.
[2019-06-20 04:28] LABS: BASOPHILS ABSOLUTE AUTO 0.04 K/mm3 (0.00-0.23); BASOPHILS PERCENT AUTO 1 % (0-2); EOSINOPHILS ABSOLUTE AUTO 0.21 K/mm3 (0.00-0.68); EOSINOPHILS PERCENT AUTO 3 % (0-6); Hemoglobin 11.7 g/dL (13.5-17.5); IMMATURE GRAN ABSOLUTE AUTO 0.06 K/mm3 (0.00-0.10); IMMATURE GRAN PERCENT AUTO 1 % (0-1); LYMPHOCYTES ABSOLUTE AUTO 1.04 K/mm3 (0.84-5.20); LYMPHOCYTES PERCENT AUTO 15 % (21-46); MONOCYTES ABSOLUTE AUTO 0.79 K/mm3 (0.16-1.47); MONOCYTES PERCENT AUTO 11 % (4-13); Mean Corpuscular HGB 34.7 pg (26.0-34.0); Mean Corpuscular HGB Conc 32.5 g/dL (31.5-36.5); Mean Corpuscular Volume 107 fL (80-100); Mean Platelet Volume 10.6 fL (9.1-12.4); NEUTROPHILS ABSOLUTE AUTO 5.03 K/mm3 (1.96-9.15); NEUTROPHILS PERCENT AUTO 70 % (41-73); NRBC ABSOLUTE 0.02 K/mm3 (0.00-0.02); NRBC Auto 0.3 /100 WBC (0.0-0.2); Platelet Count 83 K/mm3 (150-400); RDW Coefficient Variation 17.6 % (11.7-14.2); RDW Standard Deviation 67.3 fL (35.1-46.3); Red Blood Cell Count 3.37 M/mm3 (4.30-5.90); White Blood Cell Count 7.17 K/mm3 (4.00-11.30)
[2019-06-20 04:45] LABS: Albumin, Blood 2.6 g/dL (3.4-5.0); Albumin/Globulin Ratio 0.8 (0.8-1.8); Bilirubin, Total 2.2 mg/dL (0.1-1.0); Bun/Creatinine Ratio 8.9 (12.0-20.0); Calcium, Blood 9.1 mg/dL (8.5-10.1); Creatinine, Blood 3.25 mg/dL (0.60-1.20); Globulin, Blood 3.4 g/dL (2.2-4.0); Potassium, Blood 3.5 mmol/L (3.5-5.5)
--- NOTE | 2019-06-20 06:47 | NUR ---
SHIFT SUMMARY PT A&O TO SELF, LOCATION, AND EVENT, FOLLOWING INSTRUCTIONS. BP ELEVATED, OTHERWISE VSS. MONITOR SHOWS NSR, HR 70's. SPO2 > 92% ON RA. PT 1 PERSON ASSIST INTO BATHROOM W/ GAITBELT & FWW. BRUISES NOTED TO BE SCATTERED T/O BODY. POWERGLIDE TO ROBERTO, DOING BP's ON L ARM ONLY. PT ASKING IF HE CAN GO HOME TODAY STATING "I FEEL LIKE I'M NOT IMPROVING HERE, SO I MIGHT WELL BE IN A BETTER BED." REMINDED PT OF POTENTIAL PLAN FOR DIALYSIS AGAIN TODAY AND MORE TALK OF POTENTIAL DISCHARGE PLANS TO BE DISCUSSED AGAIN DURING DAY W/ DAY SHIFT MD's. OTHERWISE NO EVENTS OVERNIGHT. WILL CONTINUE TO MONITOR AND PROVIDE CARE UNTIL REPORT OFF TO DAY SHIFT RN.
--- NOTE | 2019-06-20 07:37 | NUR ---
pt awake drinking coffee, he is alert, oriented to self, and place, follows commands well, denies pain, states he thinks he is feeling better, lungs are clear t/o, resp even and unlabored is currently on r/a, no cough noted, hrr, tele in place running sr per monitor, see strip, 2+edema noted to left le, 1+ to rle, left leg is hard and red, multiple bruisings, power glide to joesph site is clear and patent, btx4, abd flat soft nontender, maew, one person assist to brdrake, call light in reach.
--- NOTE | 2019-06-20 12:14 | NUR ---
dialysis is complete, Alec reports he took 800mls off, pt states he is tired, mary taylor. held b/p meds for dialysis at [facility], will give now. call light in reach.
--- NOTE | 2019-06-20 13:37 | NUR ---
NOSE Went to answer the patient's call light and he reported to me his nose began to bleed out of no where. "I just started feeling wet, I dont know." I placed gauze and wet paper towel to stop bleeding. I then called for the nurse that was covering for Barbara, that was Sarina. DEVAUGHN Branch placed gauze and investigated right nasal. Bleeding stopped.
--- NOTE | 2019-06-20 18:16 | NUR ---
pt seems to be more confused as the day wore on. he sat up in the chair for dinner, but refuses to eat because of no salt. gave him a pkt, he still wouldn't. will be having a hidda scan in the am, will pass on to night RN to keep him npo after 2am, he is currently in the bathroom. call light in reach.
[2019-06-21 02:51] LABS: BASOPHILS ABSOLUTE AUTO 0.03 K/mm3 (0.00-0.23); BASOPHILS PERCENT AUTO 0 % (0-2); EOSINOPHILS ABSOLUTE AUTO 0.07 K/mm3 (0.00-0.68); EOSINOPHILS PERCENT AUTO 1 % (0-6); Hematocrit 36.8 % (37.0-53.0); Hemoglobin 11.7 g/dL (13.5-17.5); IMMATURE GRAN ABSOLUTE AUTO 0.05 K/mm3 (0.00-0.10); IMMATURE GRAN PERCENT AUTO 1 % (0-1); LYMPHOCYTES ABSOLUTE AUTO 1.16 K/mm3 (0.84-5.20); LYMPHOCYTES PERCENT AUTO 15 % (21-46); MONOCYTES ABSOLUTE AUTO 1.05 K/mm3 (0.16-1.47); MONOCYTES PERCENT AUTO 14 % (4-13); Mean Corpuscular HGB 34.2 pg (26.0-34.0); Mean Corpuscular HGB Conc 31.8 g/dL (31.5-36.5); Mean Corpuscular Volume 108 fL (80-100); NEUTROPHILS PERCENT AUTO 70 % (41-73); Platelet Count 83 K/mm3 (150-400); RDW Coefficient Variation 17.6 % (11.7-14.2); RDW Standard Deviation 69.5 fL (35.1-46.3); Red Blood Cell Count 3.42 M/mm3 (4.30-5.90); White Blood Cell Count 7.76 K/mm3 (4.00-11.30)
[2019-06-21 03:08] LABS: Albumin, Blood 2.7 g/dL (3.4-5.0); Albumin/Globulin Ratio 0.7 (0.8-1.8); Bilirubin, Total 2.4 mg/dL (0.1-1.0); Bun/Creatinine Ratio 7.8 (12.0-20.0); Calcium, Blood 9.1 mg/dL (8.5-10.1); Creatinine, Blood 2.94 mg/dL (0.60-1.20); Globulin, Blood 3.7 g/dL (2.2-4.0); Potassium, Blood 3.4 mmol/L (3.5-5.5); Total Protein, Blood 6.4 g/dL (6.4-8.2)
--- NOTE | 2019-06-21 04:27 | NUR ---
SHIFT SUMMARY: PATIENT VERY CONFUSED THIS SHIFT, AWAKE MOST OF SHIFT. PATIENT DOES NOT BELIEVE HE IS IN THE HOSPITAL AND IS FREQUENTLY TALKING TO PEOPLE THOUGH NO ONE IS IN THE ROOM. PATIENT INCONTINENT, BARRIER CREAM APPLIED. PATIENT CONTINUOUSLY PICKING AT SCABS ON HIS STOMACH AND ARMS. PATIENT HAS BEEN NPO SINCE 0200.
--- NOTE | 2019-06-21 08:39 | NUR ---
TAKEN TO IMAGING FOR HYTASCAN.
--- NOTE | 2019-06-21 10:34 | NUR ---
ASSUMED CARE AT 0700. LAYING SUPINE IN BED. APPEARS TO BE TALKING TO HIMSELF. INCREASINGLY CONFUSED OVERNIGHT PER NOC RN. FOLLOWS COMMANDS, ANSWERS QUESTIONS, ORIENTED TO SELF AND IN HOSPITAL BUT CONFUSED ON TOWN. VSS, WILL CONTINUE TO MONITOR.
[2019-06-21 14:23] LABS: Vancomycin, Random 17.6 ug/mL
--- NOTE | 2019-06-21 18:14 | NUR ---
SHIFT SUMMARY; INTERMITANT CONFUSION THROUGHOUT SHIFT. TALKING TO SELF AT TIMES. INTERMITANT AGITATION. ATTEMPTING TO LEAVE UNIT AND BECOMING ANGRY. AMBULATED WITH ASSISTANCE AND WALKER TO RESTROOM. HIDA SCAN COMPLETE TODAY. POWER GLIDE IN PLACE IN LEFT UPPER ARM. MULTIPLE BRUSIES ON ARMS UNCHANGED FROM PREVIOUS SHIFT AND LARGE BRUISE TO RIGHT FLANK REMAINS PRESENT. MEPILX ON COCCYX FOR REDNESS. LOWER LEGS REDDENED, NO WARMTH OR EDEMA NOTED. APPEARS TO BE BASELINE FOR PT. VSS THROUGHOUT SHIFT, WILL CONTINUE TO MONITOR UNTIL SHIFT CHANGE.
--- NOTE | 2019-06-21 19:48 | NUR ---
Assumed Care Report recieved from DEVAUGHN Lynn. Pt sitting in recliner, chair alarm in place. VSS. Pt pointing to corner of room and yelling out "Tara! Tara! come here girl!". Pt reoriented that we are in the hospital. Pt oriented to self, accurately stating name and ; states it's 2019 and [place] Pt not retaining information of reorientation despite being reoriented multiple times. Pt attempting to exit chair twice, setting off alarm. See shift assessment for detailed systems assessment. R Wrist AV fistula with thrill auscultated. Pt denying pain. Pt up with two, moderate assistance required. Pt does follow commands but requires multiple verbal cues. Will continue to monitor.
--- NOTE | 2019-06-22 02:45 | NUR ---
MRI form came. Pt confused and unable to answer questions. Will let day RN know. Plan to call pt's to answer questions regarding MRI in AM.
--- NOTE | 2019-06-22 04:17 | NUR ---
2L NC placed on pt. Oxygen saturations decreased to 89% while sleeping and pt states feeling SOB. With 2L oxygen saturations improved to 96% and pt denies further SOB. Pt oriented to person/following directions/date. Pt remains disoriented to loction now stating we are in "[place]". Pt does not believe we are in [place]. Pt continues to mutter to self during night. Sleeping on and off. Will continue to monitor.
[2019-06-22 04:31] LABS: BASOPHILS ABSOLUTE AUTO 0.03 K/mm3 (0.00-0.23); BASOPHILS PERCENT AUTO 0 % (0-2); EOSINOPHILS ABSOLUTE AUTO 0.01 K/mm3 (0.00-0.68); EOSINOPHILS PERCENT AUTO 0 % (0-6); Hematocrit 39.6 % (37.0-53.0); Hemoglobin 12.5 g/dL (13.5-17.5); IMMATURE GRAN ABSOLUTE AUTO 0.03 K/mm3 (0.00-0.10); IMMATURE GRAN PERCENT AUTO 0 % (0-1); LYMPHOCYTES ABSOLUTE AUTO 1.18 K/mm3 (0.84-5.20); LYMPHOCYTES PERCENT AUTO 14 % (21-46); MONOCYTES ABSOLUTE AUTO 1.09 K/mm3 (0.16-1.47); MONOCYTES PERCENT AUTO 13 % (4-13); Mean Corpuscular HGB 34.3 pg (26.0-34.0); Mean Corpuscular HGB Conc 31.6 g/dL (31.5-36.5); Mean Corpuscular Volume 109 fL (80-100); NEUTROPHILS ABSOLUTE AUTO 6.15 K/mm3 (1.96-9.15); NEUTROPHILS PERCENT AUTO 72 % (41-73); Platelet Count 88 K/mm3 (150-400); RDW Coefficient Variation 17.8 % (11.7-14.2); RDW Standard Deviation 70.3 fL (35.1-46.3); Red Blood Cell Count 3.64 M/mm3 (4.30-5.90); White Blood Cell Count 8.49 K/mm3 (4.00-11.30)
[2019-06-22 04:52] LABS: Albumin, Blood 2.9 g/dL (3.4-5.0); Albumin/Globulin Ratio 0.7 (0.8-1.8); Bilirubin, Total 3.2 mg/dL (0.1-1.0); Bun/Creatinine Ratio 8.4 (12.0-20.0); Creatinine, Blood 3.82 mg/dL (0.60-1.20); Globulin, Blood 3.9 g/dL (2.2-4.0); Total Protein, Blood 6.8 g/dL (6.4-8.2)
--- NOTE | 2019-06-22 05:05 | NUR ---
CRITICAL VALUE - LACTIC ACID 3.5 Called to physician, Benito SALINAS. Notified of elevated level. No new orders recieved at this time. piece presser aware of pt condition and worsening lab values. Will continue to monitor closely.
--- NOTE | 2019-06-22 06:00 | NUR ---
Placed a call out to provider to question lack of orders regarding Critical High Lactic 3.5. Pt with continued confusion throughout shift, oxygen requirement change of RA to 2L NC. awaiting call back from provider at this time.
--- NOTE | 2019-06-22 06:42 | NUR ---
Shift Summary Pt with continued confusion throughout shift. Muttering to self, visual hallucinations and talking to "amara". VSS, 2L oxygen requirement increase from RA as previously noted. Pt unable to maintain conversation, lethargic and falling asleep during care and conversation. At start of shift, pt able to transfer 1-2 per mod assist from chair to bed. Pt following commands at this time. Significant labs this am as follows: Lactic acid: 3.5 (critical high) increase from previous LA of 1.8. Provider aware. Procalcitonin: 0.26; increased from previous 0.18. Billirubin: 3.2; increased from previous 2.4 MRI screening unable to be completed this shift d/t pt mentation status. Will pass to day shift to call pt's for details as pt is unable to provide information directly. Pt's skin appears jaundiced, fragile, bruised. Edema to BLE as documented in shift assessment. No events on tele. Bed alarm in place for pt safety. Pt able to wake up enough to safely swallow PO medications whole with water. Will continue to monitor until day RN assumes care.
[2019-06-22 14:57] LABS: Vancomycin, Random 8.5 ug/mL
--- NOTE | 2019-06-22 17:22 | NUR ---
SHIFT SUMMARY PT LETHARGIC AND ONLY RESPONDING TO VERBAL STIMULI. PT ONLY ANSWERED YES OR NO TO QUESTIONS AND SLOW TO REPSOND. VS STABLE. O2 SATS REMAIN ABOVE 90% ON 2L NC OR CPAP WITH 2L BLEED IN. PER DR. TAMEZ PLAN TO KEEP PT ON CPAP MUCH TOLERATED. PT HAS BEEN ON CPAP SINCE APPROXIMATELY 1400. BP STABLE. HR NSR. PT DENIES ANY PAIN. PT REPOSITIONED Q2H AND NEEDED. PT HAS BEEN INCONTINENT OF BOWEL AND BLADDER. ATTENDS IN PLACE AND CLEAN AT THIS TIME. SPOKE WITH FAMILY MEMBER THIS SHIFT TO FILL OUT MRI SCREENING FORM. PT TO HAVE MRI OF ABD AT APPROXIMATELY 1745. WILL CONTINUE TO MONITOR AND REPORT TO ONCOMING RN. BED ALARM ON.
--- NOTE | 2019-06-22 19:28 | NUR ---
Pt arrived from [facility] at 1920. Slider sheet utilized to transfer pt from [facility] to [facility] 10 bed. 2L NC.
--- NOTE | 2019-06-22 22:03 | NUR ---
Pt more alert than at start of shift, able to speak with more clarity. Remains oriented only to self. Following simple commands such as "lift your right arm". Extensive oral care provided, suction set up at bedside. pt with moderate amount of mucous in mouth. Upper dentures removed and cleaned and placed at bedside. pt remains very sleepy. Will continue to monitor.
--- NOTE | 2019-06-23 00:31 | NUR ---
Pt calling out "I want ice!" continued improved alertness. Pt sitting with eyes opened. Asked "where are my teeth?" dentures placed back in mouth and ice chips given to pt one at a time.
--- NOTE | 2019-06-23 03:55 | NUR ---
Pt alert for vitals; now, pt is oriented to person, , place, year, president. Pt conversing in full sentences, remains sleepy but much for coharent than at start of shift. CPAP has been in place since pt's arrival to PCU from imaging. Will continue to monitor. VSS
[2019-06-23 04:13] LABS: BASOPHILS ABSOLUTE AUTO 0.04 K/mm3 (0.00-0.23); BASOPHILS PERCENT AUTO 1 % (0-2); EOSINOPHILS ABSOLUTE AUTO 0.16 K/mm3 (0.00-0.68); EOSINOPHILS PERCENT AUTO 2 % (0-6); Hematocrit 36.5 % (37.0-53.0); Hemoglobin 11.6 g/dL (13.5-17.5); IMMATURE GRAN ABSOLUTE AUTO 0.03 K/mm3 (0.00-0.10); IMMATURE GRAN PERCENT AUTO 1 % (0-1); LYMPHOCYTES PERCENT AUTO 12 % (21-46); MONOCYTES ABSOLUTE AUTO 0.86 K/mm3 (0.16-1.47); MONOCYTES PERCENT AUTO 13 % (4-13); Mean Corpuscular HGB 34.5 pg (26.0-34.0); Mean Corpuscular HGB Conc 31.8 g/dL (31.5-36.5); Mean Corpuscular Volume 109 fL (80-100); NEUTROPHILS ABSOLUTE AUTO 4.66 K/mm3 (1.96-9.15); NEUTROPHILS PERCENT AUTO 71 % (41-73); Platelet Count 69 K/mm3 (150-400); RDW Coefficient Variation 17.8 % (11.7-14.2); RDW Standard Deviation 70.6 fL (35.1-46.3); Red Blood Cell Count 3.36 M/mm3 (4.30-5.90); White Blood Cell Count 6.55 K/mm3 (4.00-11.30)
[2019-06-23 04:34] LABS: Albumin, Blood 2.5 g/dL (3.4-5.0); Albumin/Globulin Ratio 0.7 (0.8-1.8); Bilirubin, Total 2.4 mg/dL (0.1-1.0); Bun/Creatinine Ratio 8.6 (12.0-20.0); Calcium, Blood 9.6 mg/dL (8.5-10.1); Creatinine, Blood 4.51 mg/dL (0.60-1.20); Globulin, Blood 3.5 g/dL (2.2-4.0); Potassium, Blood 3.7 mmol/L (3.5-5.5)
--- NOTE | 2019-06-23 06:10 | NUR ---
Shift Summary See previous notes for detailed events and updates from overnight. Overall, VSS, pt mentation improving. CPAP on all night, pt sleeping much of the night. meds able to be taken with water. repositioned q2 and prn for comfort. No events on tele. See shift assessment for detailed systems assessment. Will continue to monitor.
--- NOTE | 2019-06-23 12:43 | NUR ---
UPDATE PT ALERT AND ORIENTED. VS STABLE. PT TAKEN TO DIALYSIS. WILL AWAIT RETURN.
--- NOTE | 2019-06-23 15:15 | NUR ---
PT RETURNED FROM DIALYSIS. VS STABLE. ATTENDS CHANGED AND PT REPOSITIONED. WILL CONTINUE TO MONITOR CLOSELY.
[2019-06-23 15:41] LABS: Vancomycin, Random 14.3 ug/mL
--- NOTE | 2019-06-23 17:27 | NUR ---
SHIFT SUMMARY PT ALERT AND ORIENTED THIS SHIFT. VS STABLE. PT ON AND OFF CPAP NEEDED FOR SLEEPING WITH 2L BLEED IN OR RA. PT HAD DIALYSIS THIS SHIFT. PT DENIES ANY PAIN. PT HAS BEEN INCONTINENT AT TIMES. PT UP TO CHAIR FOR MEALS WITH 2 PERSON ASSIST. WILL CONTINUE TO MONITOR AND REPORT TO ONCOMING RN. CALL LIGHT IN REACH.
--- NOTE | 2019-06-24 04:57 | NUR ---
SHIFT SUMMARY PT HAS BEEN ALERT AND APPROPRIATE THROUGH THE NIGHT. PT HAS BEEN ON ROOM AIR, O2 SATS >92%, CPAP ENC WHILE SLEEPING, VSS, 1 PERSON ASSIST TO THE BATHROOM USING FWW/GAIT BELT, GAIT STEADY. PT REFUSING TO ELEVATE L.EXTREMITIES. BED ALARM FOR SAFETY. CALL LIGHT IN REACH, WCODILON & REPORT TO DAY RN
[2019-06-24 05:13] LABS: BASOPHILS ABSOLUTE AUTO 0.03 K/mm3 (0.00-0.23); BASOPHILS PERCENT AUTO 1 % (0-2); EOSINOPHILS ABSOLUTE AUTO 0.15 K/mm3 (0.00-0.68); EOSINOPHILS PERCENT AUTO 3 % (0-6); Hematocrit 35.3 % (37.0-53.0); Hemoglobin 11.3 g/dL (13.5-17.5); IMMATURE GRAN ABSOLUTE AUTO 0.03 K/mm3 (0.00-0.10); IMMATURE GRAN PERCENT AUTO 1 % (0-1); LYMPHOCYTES ABSOLUTE AUTO 0.81 K/mm3 (0.84-5.20); LYMPHOCYTES PERCENT AUTO 13 % (21-46); MONOCYTES ABSOLUTE AUTO 0.72 K/mm3 (0.16-1.47); MONOCYTES PERCENT AUTO 12 % (4-13); Mean Corpuscular HGB 34.5 pg (26.0-34.0); Mean Corpuscular Volume 108 fL (80-100); Mean Platelet Volume 10.7 fL (9.1-12.4); NEUTROPHILS ABSOLUTE AUTO 4.37 K/mm3 (1.96-9.15); NEUTROPHILS PERCENT AUTO 71 % (41-73); Platelet Count 75 K/mm3 (150-400); RDW Coefficient Variation 17.6 % (11.7-14.2); RDW Standard Deviation 69.2 fL (35.1-46.3); Red Blood Cell Count 3.28 M/mm3 (4.30-5.90); White Blood Cell Count 6.11 K/mm3 (4.00-11.30)
--- NOTE | 2019-06-24 08:14 | NUR ---
The pt is pleasant, cooperative and conversant this morning. He remembers that he is in the hospital, and tells me that he had to come in because said he was "going crazy". He does not have any idea of how long he has been in the hospital, and is uncertain of the date until I verify it for him. A few minutes later he asks me if he is still in the hospital. Speech is slow but clear.
--- NOTE | 2019-06-24 12:23 | NUR ---
Naeem has been sitting up in the chair, appears comfortable and has no complaints when I come into the room with him. I spoke with Dr Simpson this morning about the plan, which is to see about getting him discharged tomorrow. I will work on following up to have a CPAP in good working order available for him at home at discharge. He has one at home, but family states that it has been in need of repair. He has been borrowing one from someone else. The pt will be dialyzed tomorrow, and plan is to transition him to PD as it is difficult for him to get to HD as an outpatient. Per PT Lazarus Loggerstat, the pt appears to be at his baseline physical functioning. The pt is awake, but has some lapses in his memory and understanding of ongoing events and treatment plan. He is not able to verbalize to me any pertinent information about his medication which he takes at home. States, "I don't know anything about it."
--- NOTE | 2019-06-24 14:24 | NUR ---
Call to Jesus Manuel Nino, the pt's . She states that [facility] has picked up the pt's old CPAP machine and is getting him a new one, which will be available either today or tomorrow. She said also that they have a hospital bed for him at home, and also a tall walker for his use. She is interested in having a bedside commode for him, also, and would appreciate it if the doctor could write a prescription for it at discharge.
[2019-06-24 15:05] LABS: Vancomycin, Random 22.7 ug/mL
--- NOTE | 2019-06-24 15:43 | NUR ---
ASSUMED CARE OF PT AT APPROX 1450; GAVE REPORT TO CRISTIAN BRO RN IN MEDICAL FLOOR AND TRANSFERED PT TO ROOM.
--- NOTE | 2019-06-24 16:10 | NUR ---
PT. ARRIVED TO ROOM FROM PCU-10 VIA BED. RT CALLED TO SIT UP CPAP PT. WAS LETHARGIC UPON ARRIVAL TO ROOM. PT. OPENED HIS EYES AND SPOKE TO ME WHEN I SPOKE TO HIM. PT. HAS PERMA-CATH TO LCW WITH A FISTULA ON R WRIST, CAN FEEL PULSE BUT NO THRILL. PT. VERY ENDEMATOUS WITH OPAQUE APPEARING SKIN.
--- NOTE | 2019-06-24 18:16 | NUR ---
PT. ATE ABOUT A QUARTER OF HIS DINNER TONIGHT, NOT HAPPY HE COULDN'T HAVE REAL SALT. NO CHANGES SINCE COMING TO THE FLOOR FROM [facility].
--- NOTE | 2019-06-25 00:27 | NUR ---
PT REFUSING TO WEAR CONT BIOX. NOT WEARING HOME CPAP MASK EITHER. OFFERED TO ASSIST W/PLACEMENT OF THE MASK, PT REFUSED. RT NOTIFIED. PT SATING 91-92% ON RA.
--- NOTE | 2019-06-25 04:28 | NUR ---
VSS. AFEB. A/OX2-3. INCREASED CONFUSION NOTED DURING THE NIGHT. PT ATTEMPTING TO SELF T/F, STATED HE URINATED ON THE FLOOR, ALTHOUGH THERE WAS NO EVIDENCE OF THIS. HEARD TALKING TO HIMSELF AND CALLING OUT NAMES OF INDIVIDUALS NOT PRESENT. REDIRECTS EASILY. REFUSED CPAP AT START OF SHIFT BUT IS CURRENTLY WEARING IT. 02 SATS 94-95% ON RA. PIVOT T/F W/1 ASSIST. MADE NEEDS KNOWN APPROPRIATELY USING CALL BUTTON AT START OF SHIFT. INCONTINENT. VOIDING SMALL AMTS. PERMACATH IN L UPPER CHEST, INSERTION SITE WITHOUT ERYTHEMA OR DRAINAGE. THRILL PALPATED IN R WRIST FISTULA SITE. FINE INSPIRATORY CRACKLES AUSCULTED IN L MID LOBE. NO COUGHING HEARD. BED LOW, BED ALARM TURNED ON. CALL BUTTON IN REACH.
[2019-06-25 05:33] LABS: Bun/Creatinine Ratio 8.4 (12.0-20.0); Calcium, Blood 9.5 mg/dL (8.5-10.1); Creatinine, Blood 4.27 mg/dL (0.60-1.20); Potassium, Blood 3.5 mmol/L (3.5-5.5)
--- NOTE | 2019-06-25 11:58 | NUR ---
HE WENT TO DIALYSIS AT 0925 VIA BED. I HELD HIS BP MEDS AND WILL GIVE THEM WHEN HE RETURNS. HE HAD A CUP OF COFFEE BEFORE BREAKFAST THEN ATE A SMALL AMT OF HIS BREAKFAST WHEN IT CAME. HE SAT ON THE BSC FOR 30 MIN BUT DID NOT PASS ENOUGH STOOL TO CALL IT A BOWEL MOVEMENT. HIS SKIN IS VERY DRY AND BRUISED. HE HAD A SMALL BLOODY NOSE, LEFT NOSTRIL. HE HAS ANASARCA. JUST BEFORE HE LEFT FOR DIALYSIS, [facility] WAS HERE TO FIT A REPLACEMENT MASK TO HIM.
[2019-06-25 13:03] LABS: Vancomycin, Random 15.2 ug/mL
--- NOTE | 2019-06-25 17:51 | NUR ---
HE IS AWAKE NOW AND TRYING TO EAT SOME DINNER. TELE WAP 70'S. HE HAD DIALYSIS THIS AM. HE WAS CONFUSED AT 7 AM. HE WAS A&O X3 PRIOR TO DIALYSIS THEN CONFUSED AND DROWSY AFTER DIALYSIS. NOW HE IS [employer]X3 AGAIN AND DISAGREES WITH ME ABOUT ANY CONFUSION EARLIER TODAY. HE IS WEAK. NO MORE NOSE BLEED AFTER A SMALL ONE THIS AM AT BREAKFAST TIME. CBG'S STABLE. [facility] LCW WNL. GOOD BRUIT AND THRILL IN R ARM FISTULA.
[2019-06-26 05:02] LABS: BASOPHILS ABSOLUTE AUTO 0.03 K/mm3 (0.00-0.23); BASOPHILS PERCENT AUTO 1 % (0-2); EOSINOPHILS ABSOLUTE AUTO 0.12 K/mm3 (0.00-0.68); EOSINOPHILS PERCENT AUTO 2 % (0-6); Hematocrit 35.7 % (37.0-53.0); Hemoglobin 11.5 g/dL (13.5-17.5); IMMATURE GRAN ABSOLUTE AUTO 0.02 K/mm3 (0.00-0.10); IMMATURE GRAN PERCENT AUTO 0 % (0-1); LYMPHOCYTES ABSOLUTE AUTO 0.86 K/mm3 (0.84-5.20); LYMPHOCYTES PERCENT AUTO 14 % (21-46); MONOCYTES ABSOLUTE AUTO 0.85 K/mm3 (0.16-1.47); MONOCYTES PERCENT AUTO 14 % (4-13); Mean Corpuscular HGB 34.3 pg (26.0-34.0); Mean Corpuscular HGB Conc 32.2 g/dL (31.5-36.5); Mean Corpuscular Volume 107 fL (80-100); Mean Platelet Volume 10.8 fL (9.1-12.4); NEUTROPHILS ABSOLUTE AUTO 4.29 K/mm3 (1.96-9.15); NEUTROPHILS PERCENT AUTO 70 % (41-73); Platelet Count 84 K/mm3 (150-400); RDW Coefficient Variation 17.2 % (11.7-14.2); RDW Standard Deviation 68.8 fL (35.1-46.3); Red Blood Cell Count 3.35 M/mm3 (4.30-5.90); White Blood Cell Count 6.17 K/mm3 (4.00-11.30)
[2019-06-26 05:20] LABS: Bun/Creatinine Ratio 7.7 (12.0-20.0); Calcium, Blood 9.5 mg/dL (8.5-10.1); Creatinine, Blood 3.52 mg/dL (0.60-1.20); Potassium, Blood 3.4 mmol/L (3.5-5.5)
--- NOTE | 2019-06-26 05:40 | NUR ---
SHIFT SUMMARY: VSS. AFEB. PT CONFUSED. A/O TO SELF ONLY. INCREASED DIFFICULTY W/ T/F'S TO BSC- REQUIRES 2 PERSON HEAVY ASSIST. PT WORE HIS CPAP HALF THE NIGHT AND BEGAN TO REFUSE IT AFTER 3 AM. 02 SATS HAVE REMAINED WNL ON RA WHILE AWAKE AND W/2L BLEED IN TO CPAP. NO C/O PAIN. CONT W/ANASARCA. PERMACATH INSERTION SITE ON L CHEST WITHOUT ERYTHEMA. DRSG CDI. AV FISTULA ON R WRIST W/ BRUIT AND THRILL PRESENT. NO ACUTE CHANGES. WILL CONT TO MONITOR.
--- NOTE | 2019-06-26 05:53 | NUR ---
PER TELE COMMUNITY SPORTS COORDINATOR, PT RHYTHM SHOWING ST DEPRESSION INCREASING THROUGH THE NIGHT. PT DENYING CHEST PAIN. INFORMED DR. ROBLES. NO NEW ORDERS AT THIS TIME. CONT TO MONITOR PT STATUS.
--- NOTE | 2019-06-26 06:02 | NUR ---
PT BP'S ELEVATED TONIGHT W/SBP >170. TAKES CARVEDILOL AND LISINOPRIL AT HOME. SPOKE W/DR. ROBLES. NEW ORDER TO RESUME CARVEDILOL AND LISINOPRIL NOW.
[2019-06-26 15:14] LABS: PCO2 Arterial 40.9 mmHg (35-45); PO2 Arterial 60.5 mmHg (80-100); pH Blood Arterial 7.48 (7.35-7.45)
--- NOTE | 2019-06-26 15:18 | NUR ---
SHIFT SUMMARY PT IS ALERT BUT ONLY ORIENTED TO HIMSELF AND SITUATION AT TIMES. HE HAS SIGNIFICANT CONFUSION AND IS NON-SENSICAL AT TIMES. DR DEL VALLE IS AWARE OF THIS AND HAS MET WITH HIM TODAY. PCU FUELS ENGINEER REPORTS AN ABNORMAL RHYTHM WHICH SHE PRINTED THE STRIPS FOR AND THESE WERE SHOWN TO DR DEL VALLE. ABG HAS BEEN DONE ORDERED. NO DIALYSIS TODAY PER DR CARDONA. HE CONTINUES TO HAVE EDEMA THROUGHOUT. PALLIATIVE CARE RN HAS ALSO MET WITH THE PT. THERAPY IS REC [facility] BUT PT IS REFUSING STATING HE WANTS TO GO HOME. PT IS ABLE TO MAKE HIS NEEDS KNOWN WHEN ASKED. HE IS A X 2 MAX ASSIST WITH TRANSFERS FROM THE CHAIR TO THE BED. HE IS RESTING IN BED NOW AND HAS HIS CALL LIGHT IN REACH.
--- NOTE | 2019-06-26 17:08 | NUR ---
Met with patient and physician to assess patient. Pt able to participate in part of conversation. Slow response, drifts off somulent. Poor ventilation mouth breathing some aggitation. Goal is figue out a detention plan of care for this patient. Physicians will review prognosis, metabolic needs and family needs. Patient wants to go home may benefit from some rehabilitation but he has relayed in past conversations that he does not tolerate dialysis and he has great fatigue. pt KPS score is 30%. Need to once again review code status and eventual end of life plan to reduce suffering
--- NOTE | 2019-06-26 21:07 | NUR ---
PT RESTING [id number] IN BED.
--- NOTE | 2019-06-27 06:42 | NUR ---
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
[2019-06-27 09:50] LABS: Hematocrit 32.8 % (37.0-53.0); Hemoglobin 10.5 g/dL (13.5-17.5)
[2019-06-27 10:00] LABS: Albumin, Blood 2.4 g/dL (3.4-5.0); Anion Gap 6 mmol/L (6-16); Blood Urea Nitrogen 32 mg/dL (8-24); Bun/Creatinine Ratio 8.1 (12.0-20.0); CO2, Blood 32 mmol/L (21-32); Calcium, Blood 9.5 mg/dL (8.5-10.1); Chloride, Blood 98 mmol/L (98-108); Creatinine, Blood 3.97 mg/dL (0.60-1.20); Glomerular Filtration Rate 16 (60-); Glucose, Blood 189 mg/dL (70-99); Phosphorus, Blood 3.3 mg/dL (2.5-4.9); Potassium, Blood 3.5 mmol/L (3.5-5.5); Sodium, Blood 136 mmol/L (136-145)
[2019-06-27] MEDS ORDERED: LOSA25 PO (14:10)
[2019-06-27] MEDS ORDERED: Pedi-Dri 100,0060 GM TOP (14:12)
[2019-06-27] MEDS ORDERED: ROXICODONE5 MG PO (14:13)
--- NOTE | 2019-06-27 15:21 | NUR ---
PT WAS DISCHARGED TO HOME WITH HOME HEALTH. ALL PAPERS AND MEDICATION WERE REVIEWED WITH PRIOR TO TRANSPORT HOME. PT WAS TAKEN VIA AMBULANCE HOME. ALL PERSONAL BELONGINGS WERE SENT WITH PT. NO DISTRESS WAS NOTED PAIN MED WAS GIVEN PRIOR TO DISCHARGE PER EMAR. PACKET SENT WITH PT.
== END 2019-06-27 14:51 | disposition home or self-care (01) | DRG 91 ==
LOC: ER 12:39 → PCU 17:14 → MEDS 17:14 → PCU 17:53 → MEDS 06-24 15:33
PROVIDERS: Emergency Medicine; Internal Medicine; Internal Medicine Gastroenterology; Nurse Practitioner Acute Care; Pharmacist; Student in an Organized Health Care Education/Training Program; ADMIT Internal Medicine
PROC: 5A1D70Z Performance of Urinary Filtration, Intermittent, Less than 6 Hours Per Day (ICD-10-PCS; principal; 2019-06-21)
DX: G92 Toxic encephalopathy (principal); N18.6 End stage renal disease; I12.0 Hypertensive chronic kidney disease with stage 5 chronic kidney disease or end stage renal disease; K86.2 Cyst of pancreas; Z79.82 Long term (current) use of aspirin; Z95.1 Presence of aortocoronary bypass graft; Z87.891 Personal history of nicotine dependence; I25.10 Atherosclerotic heart disease of native coronary artery without angina pectoris; Z99.2 Dependence on renal dialysis; M19.90 Unspecified osteoarthritis, unspecified site; E78.5 Hyperlipidemia, unspecified; Z79.4 Long term (current) use of insulin; E11.22 Type 2 diabetes mellitus with diabetic chronic kidney disease; M10.9 Gout, unspecified; R79.89 Other specified abnormal findings of blood chemistry; D69.6 Thrombocytopenia, unspecified; E66.9 Obesity, unspecified; Z68.38 Body mass index [BMI] 38.0-38.9, adult; G47.33 Obstructive sleep apnea (adult) (pediatric); F03.90 Unspecified dementia, unspecified severity, without behavioral disturbance, psychotic disturbance, mood disturbance, and anxiety; K21.9 Gastro-esophageal reflux disease without esophagitis; I27.20 Pulmonary hypertension, unspecified; D63.8 Anemia in other chronic diseases classified elsewhere
CPT/HCPCS: 36415; 36600; 70450; 71045; 74181; 76700; 78226; 80048; 80053; 80069; 80202; 81001; 82140; 82550; 82803; 82947; 83036; 83605; 83735; 84145; 84484; 85014; 85018; 85025; 85610; 86317; 87040; 87086; 93005; 93010; 93306; 94762; 97110; 97116; 97162; 97166; 97530; 97535; 99285-25; A9270-GY; A9537; C1751; J1644; J2310; J2543; J3370; J7030; J7040; J7050